=== PATIENT | male | born 1975 | race African-American/Black ===

== ENCOUNTER 2020-01-04 15:06 | Emergency (ER) | payer BC ==
[~2020-01-04] VITALS: Ht 177.8 cm; Wt 104.3 kg
[~2020-01-04 15:06] MED LIST: CATAPRES0.1 MG PO; MEDROL DOSPAK21 TAB PO; OMEPRAZOLE40 MG PO; PERCOCET 5-3251 EACH PO
[2020-01-04 17:03] VITALS: BP 195/111
== END 2020-01-04 17:04 | disposition home or self-care (01) ==
LOC: ER 15:06
DX: S61.212A Laceration without foreign body of right middle finger without damage to nail, initial encounter (principal); S61.214A Laceration without foreign body of right ring finger without damage to nail, initial encounter; W27.0XXA Contact with workbench tool, initial encounter; Y93.89 Activity, other specified; Y92.89 Other specified places as the place of occurrence of the external cause; Y99.8 Other external cause status